=== PATIENT | female | born 1955 | race Caucasian/White ===

== ENCOUNTER 2016-09-12 17:38 | Emergency (ER) | payer BC ==
[~2016-09-12] VITALS: Ht 165.1 cm; Wt 90.0 kg
[2016-09-12 17:48] VITALS: TEMP 36.7; Ht 165.1 cm; Wt 90.0 kg
[2016-09-12] MEDS ORDERED: CHOL1000 PO (19:37)
[2016-09-12] MEDS ORDERED: MAGN1CAP4 PO (19:37)
[2016-09-12] MEDS ORDERED: TIMO10TA2 PO (19:37)
[2016-09-12] MEDS ORDERED: FLUO10CA48 PO (19:37)
[2016-09-12] MEDS ORDERED: DXM/4 PO (19:37)
[2016-09-12] MEDS ORDERED: PROC1TAB5 PO (19:37)
[2016-09-12] MEDS ORDERED: NAPR-1168 PO (19:37)
[2016-09-12] MEDS ORDERED: SUMA100T16 PO (19:37)
[2016-09-12 20:27] LABS: BASO % 0.1 %; BASO ABS # 0.01 K/uL (0-0.2); COMPLETE YES; EOS % 0.2 %; HEMATOCRIT 40.7 % (37-47); IG% 0.9 %; LYMPH ABS # 2.66 K/uL (1.2-3.4); MEAN CELL VOLUME 89.1 fL (80-100); MEAN CORPUSCULAR HEMOGLOBIN 31.1 pg (25-34); MEAN CORPUSCULAR HGB CONC 34.9 g/dl (32-36); MEAN PLATELET VOLUME 9.8 fL (7.4-10.4); MONO % 14.3 %; NEUT % 62.5 %; PLATELET COUNT 246 K/uL (130-400); RED BLOOD COUNT 4.57 M/uL (4.2-5.4); WHITE BLOOD COUNT 12.09 K/uL (4.8-10.8)
[2016-09-12 20:38] LABS: INR 1.1 (0.9-1.1); PROTHROMBIN TIME (PATIENT) 11.3 SECONDS (9.0-12.0)
[2016-09-12 20:59] LABS: ALKALINE PHOSPHATASE 46 U/L (45-117); ALT/SGPT 20 U/L (12-78); AST/SGOT 9 U/L (15-37); BLOOD UREA NITROGEN 22 mg/dl (7-18); C-REACTIVE PROTEIN < 0.29 mg/dl (0-0.29); CALCIUM 8.2 mg/dl (8.5-10.1); CARBON DIOXIDE 23 mmol/L (21-32); CHLORIDE 104 mmol/L (98-107); GLUCOSE 95 mg/dl (70-99); MAGNESIUM 2.1 mg/dl (1.8-2.4); POTASSIUM 4.2 mmol/L (3.5-5.1); SODIUM 136 mmol/L (136-145)
[2016-09-12] MEDS ORDERED: HYDROmorphone INJ 1 MG/ML SYR IV PRN (21:00)
[2016-09-12] MEDS ORDERED: ONDANSETRON 8 MG/54 ML D5W IV ONE (21:00)
[2016-09-12 21:01] LABS: MANUAL MICROSCOPIC REQUIRED? NO; REVIEW REQ? NO; URINE APPEARANCE CLOUDY (CLEAR); URINE BILIRUBIN NEG (NEG); URINE COLOR YELLOW; URINE EPITHELIAL CELL AUTO 20-30 /lpf (0-5); URINE NITRITE NEG (NEG); URINE PH 5.5 (4.5-7.5); UROBILINOGEN NEG (NEG)
[2016-09-12 21:20] LABS: LYME DISEASE AB IGG NEG (NEG); LYME DISEASE AB IGM NEG (NEG)
--- NOTE | 2016-09-12 21:28 | DIAGNOSTIC IMAGING REPORT ---
MR ANGIOGRAPHY OF THE [place] NO CONTRAST CLINICAL HISTORY: Severe headache, confusion. Hypertension. COMPARISON STUDY: None. A 3-D [id number] MR angiographic sequence of the [place] was performed. Both the source and projection images were reviewed. There is no evidence of major intracranial branch occlusion. There is no evidence of intracranial stenosis. There are no lesions suspicious for aneurysm. IMPRESSION: Unremarkable MR angiography of the [place]. Electronically signed by: Dawson Reddy M.D. 09/12/2016 9:26 PM Dictated Date/Time: 09/12/2016 9:25 PM
--- NOTE | 2016-09-12 21:51 | DIAGNOSTIC IMAGING REPORT ---
MRI OF THE BRAIN WITHOUT CONTRAST CLINICAL HISTORY: Date, confusion, neck pain, hypertension. COMPARISON STUDY: None. FINDINGS: Sagittal T1, axial diffusion, proton density and T2 weighted axial, coronal FLAIR, and axial T1-weighted images were acquired. No intra or extra-axial mass lesions are visualized Axial diffusion-weighted images reveal no evidence of acute or subacute infarction. There is no evidence of ventricular dilatation. Proton density T2-weighted and FLAIR images reveal a 2 mm focus of increased T2 and FLAIR signal within the left occipital periventricular white matter. In addition there are a few punctate foci of increased FLAIR signal within the frontal white matter. These foci although nonspecific likely are on a small vessel basis. There are no abnormal flow voids. IMPRESSION: No acute findings. No evidence of intracranial mass. No evidence of acute or subacute infarction. Electronically signed by: Dawson Reddy M.D. 09/12/2016 9:50 PM Dictated Date/Time: 09/12/2016 9:47 PM
--- NOTE | 2016-09-12 22:09 | DIAGNOSTIC IMAGING REPORT ---
MRI CERVICAL WITHOUT CONTRAST CLINICAL HISTORY: severe neck pain, confusion, migraine TECHNIQUE: Sagittal and axial T1, T2 and STIR images were obtained. COMPARISON STUDY: No previous studies for comparison. There are no suspicious areas of marrow replacement. No intrinsic cervical cord lesions are visualized. 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 C2-3: There is no evidence of disc bulge or focal herniation. There is no spinal or foraminal stenosis. C3-4: There is a mild circumferential disc bulge. There is slight effacement of the anterior subarachnoid space. There is no foraminal stenosis C4-5: There is a mild circumferential disc bulge present. There is minor bilateral foraminal narrowing C5-6 :There is a mild circumference disc bulge present.. There is mild left-sided foraminal narrowing C6-7: There is a mild circumferential disc bulge.. There is no evidence of spinal or foraminal stenosis. C7-T1: There is no evidence of disc bulge or focal herniation. There is no evidence of spinal or foraminal stenosis. IMPRESSION: 1. Mild multilevel spondylitic changes with multilevel disc bulges. No evidence of moderate or severe spinal stenosis. Mild bilateral foraminal narrowing at the C4-5 level. Mild left-sided foraminal narrowing at the C5-6 level. No intrinsic cord lesions identified Electronically signed by: Dawson Reddy M.D. 09/12/2016 10:08 PM Dictated Date/Time: 09/12/2016 10:03 PM
[2016-09-12] MEDS ORDERED: GADAVIST IV PRN (22:15)
--- NOTE | 2016-09-12 22:38 | DIAGNOSTIC IMAGING REPORT ---
MRA NECK WITHOUT CONTRAST CLINICAL HISTORY: neck pain, confusion, headache, hypertension COMPARISON STUDY: No previous studies for comparison. FINDINGS: Due to injector malfunction, the examination was performed without intravenous contrast. System Operation Superintendent films reveal a prominent thoracic scoliosis. There is no evidence of carotid or vertebral artery stenosis. IMPRESSION: 1. Technically limited study secondary to an injector malfunction 2. No evidence of carotid or vertebral artery stenosis Electronically signed by: Dawson Reddy M.D. 09/12/2016 10:36 PM Dictated Date/Time: 09/12/2016 10:35 PM
[2016-09-12] MEDS ORDERED: HYDROmorphone INJ 0.5 MG/0.5 ML SYR IV STA (23:16)
[2016-09-12] MEDS ORDERED: KETOROLAC TROMETHAMINE 30 MG/ML VIAL IV STA (23:16)
[2016-09-12] MEDS ORDERED: NORCO 5/325MG HOME PACK PO ONE (23:30)
[2016-09-13 00:07] VITALS: BP 105/71; O2SAT 98
[2016-09-13 00:11] VITALS: PULSE 48
--- NOTE | 2016-09-13 02:05 | EMERGENCY ROOM VISIT NOTE ---
History Report prepared by Tata: Alvarado Carrasco Under the Supervision of: Dr. Wil Yates M.D. First contact with patient: 19:45 Chief Complaint: NEURO SYMPTOMS Stated Complaint: DIZZINESS, SHAKE, NECK PAIN, VISION Nursing Triage Summary: Patient ambulatory to triage, states "I have a history of migraines. They have been getting more frequent. I am getting them every day. I recently started a decadron taper to control the cycle. I am taking timolol and prozac. I feel disconnected and confused. My eyesight is not as sharp. I feel shaky. Today, I have had some neck pain. I feel really stressed but tired. I went to the store today and couldn't make decisions about purchases. I feel really foggy. I have been suffering for several weeks with feelings of depression and not wanting to do anything for about a month. I have never had depression before." Patient started the Decadron on ; symptoms then started on Monday. Patient is seeing a specialist for headaches in [place]. Patient spoke with her on the phone and she told the patient to come here. Patient took Naproxyn, Imitrax and Compazine for the pain today with no relief. History of Present Illness The patient is a 61 year old female who presents to the Emergency Room with complaints of neurologic symptoms starting earlier today. She currently rates her discomfort as a 7/10 in severity. The patient states that she has a migraine , severe neck pain, nausea, confusion, blurry vision, shakiness, and dizziness. She states that she has a history of migraines, and they are becoming more frequent. She was recently put on a steroid taper for her migraines. The patient additionally states that she has felt stressed out due to being here, and she has felt depressed for the past month as well as having migraines every day for the past month. She additionally states that she has been having trouble making decisions. The patient states that she has taken Naprosyn around 1600, and compazine this morning for her headache. She denies any recent travels. Pt denies LOC, fevers, chills, diaphoresis, chest pain, breathing difficulties, vomiting, abdominal pain, back pain, melena, hematochezia, urinary symptoms, numbness, weakness, lymphadenopathy, rash, or other complaints. Source of History: patient Onset: earlier today Position: other (global) Symptom Intensity: 01/02 Quality: other (neurlogic symptoms) Associated Symptoms: + headache, + nausea, + neck pain Note: Associated symptoms: confusion, blurry vision, shakiness, dizziness Review of Systems See HPI for pertinent positives and negatives. A total of ten systems were reviewed and were otherwise negative. Past Medical & Surgical Medical Problems: (1) Hypertension (2) Migraine (3) Scoliosis Family History Cancer Heart disease Hypertension Social History Smoking Status: Never Smoker Marital Status: Housing Status: lives with family Occupation Status: employed Current/Historical Medications Scheduled Cholecalciferol (Vitamin D3), 1,000 INTER.UNIT PO DAILY Dexamethasone (Decadron), 4 MG PO TAPER Fluoxetine (Prozac), 30 MG PO QPM Magnesium Oxide (Magnesium), 500 MG PO Q2D Sumatriptan Succinate (Imitrex), 100 MG PO PRN Timolol (Blocadren), 5 MG PO QPM Scheduled PRN Naproxen Ds (Naprosyn Ds), 550 MG PO DAILY PRN for Headache Prochlorperazine Maleate (Compazine), 10 MG PO Q6H PRN for Nausea Allergies Coded Allergies: Midazolam (Unverified Allergy, Mild, HIVES, 09/12/16) Fluconazole (Unverified Adverse Reaction, Mild, SORES AT THE CORNES OF THE MOUTH AND EARS, 09/12/16) Physical Exam Vital Signs Date Time Temp Pulse Resp B/P Pulse Ox O2 Delivery O2 Flow Rate FiO2 09/13/16 00:11 48 09/13/16 00:07 50 16 105/71 98 09/12/16 22:41 46 12 110/80 95 09/12/16 20:20 49 09/12/16 20:03 Room Air 09/12/16 17:48 36.7 51 16 165/99 97 Room Air Physical Exam GENERAL: Awake, alert, well appearing, no distress HENT: Normocephalic, atraumatic. TM's normal. Oropharynx unremarkable. EYES: PERRL. EOMI. Normal conjunctiva. Sclera non-icteric. NECK: Supple. No nuchal rigidity. FROM. No JVD or bruit. RESPIRATORY: CTA CARDIAC: RRR. No murmur. ABDOMEN: Soft, non distended. No tenderness to palpation. No rebound or guarding. No masses. RECTAL: Deferred. MUSCULOSKELETAL: Unremarkable. No edema. No discoloration. Gross motor strength symmetric. NEURO: Cranial nerves 2-12 grossly intact. Normal sensorium. No sensory or motor deficits noted. Speech normal. No pronator drift. Normal heel to rangel. Normal rapid alternating movements. SKIN: No rash or jaundice noted. LYMPH: No adenopathy. Medical Decision & Procedures ER Provider Diagnostic Interpretation: Radiology results as stated below per my review and radiologist interpretation MRA NECK WITHOUT CONTRAST CLINICAL HISTORY: neck pain, confusion, headache, hypertension COMPARISON STUDY: No previous studies for comparison. FINDINGS: Due to injector malfunction, the examination was performed without intravenous contrast. Director Digital Marketing films reveal a prominent thoracic scoliosis. There is no evidence of carotid or vertebral artery stenosis. IMPRESSION: 1. Technically limited study secondary to an injector malfunction 2. No evidence of carotid or vertebral artery stenosis Electronically signed by: Dawson Reddy M.D. 09/12/2016 10:36 PM Dictated Date/Time: 09/12/2016 10:35 PM MR ANGIOGRAPHY OF THE [place] NO CONTRAST CLINICAL HISTORY: Severe headache, confusion. Hypertension. COMPARISON STUDY: None. A 3-D [id number] MR angiographic sequence of the [place] was performed. Both the source and projection images were reviewed. There is no evidence of major intracranial branch occlusion. There is no evidence of intracranial stenosis. There are no lesions suspicious for aneurysm. IMPRESSION: Unremarkable MR angiography of the [place]. Electronically signed by: Dawson Reddy M.D. 09/12/2016 9:26 PM Dictated Date/Time: 09/12/2016 9:25 PM MRI CERVICAL WITHOUT CONTRAST CLINICAL HISTORY: severe neck pain, confusion, migraine TECHNIQUE: Sagittal and axial T1, T2 and STIR images were obtained. COMPARISON STUDY: No previous studies for comparison. There are no suspicious areas of marrow replacement. No intrinsic cervical cord lesions are visualized. 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 C2-3: There is no evidence of disc bulge or focal herniation. There is no spinal or foraminal stenosis. C3-4: There is a mild circumferential disc bulge. There is slight effacement of the anterior subarachnoid space. There is no foraminal stenosis C4-5: There is a mild circumferential disc bulge present. There is minor bilateral foraminal narrowing C5-6 :There is a mild circumference disc bulge present.. There is mild left-sided foraminal narrowing C6-7: There is a mild circumferential disc bulge.. There is no evidence of spinal or foraminal stenosis. C7-T1: There is no evidence of disc bulge or focal herniation. There is no evidence of spinal or foraminal stenosis. IMPRESSION: 1. Mild multilevel spondylitic changes with multilevel disc bulges. No evidence of moderate or severe spinal stenosis. Mild bilateral foraminal narrowing at the C4-5 level. Mild left-sided foraminal narrowing at the C5-6 level. No intrinsic cord lesions identified Electronically signed by: Dawson Reddy M.D. 09/12/2016 10:08 PM Dictated Date/Time: 09/12/2016 10:03 PM MRI OF THE BRAIN WITHOUT CONTRAST CLINICAL HISTORY: Date, confusion, neck pain, hypertension. COMPARISON STUDY: None. FINDINGS: Sagittal T1, axial diffusion, proton density and T2 weighted axial, coronal FLAIR, and axial T1-weighted images were acquired. No intra or extra-axial mass lesions are visualized Axial diffusion-weighted images reveal no evidence of acute or subacute infarction. There is no evidence of ventricular dilatation. Proton density T2-weighted and FLAIR images reveal a 2 mm focus of increased T2 and FLAIR signal within the left occipital periventricular white matter. In addition there are a few punctate foci of increased FLAIR signal within the frontal white matter. These foci although nonspecific likely are on a small vessel basis. There are no abnormal flow voids. IMPRESSION: No acute findings. No evidence of intracranial mass. No evidence of acute or subacute infarction. Electronically signed by: Dawson Reddy M.D. 09/12/2016 9:50 PM Dictated Date/Time: 09/12/2016 9:47 PM Laboratory Results 09/12/16 20:10 Red Blood Count 4.57, Mean Corpuscular Volume 89.1, Mean Corpuscular Hemoglobin 31.1, Mean Corpuscular Hemoglobin Concent 34.9, Mean Platelet Volume 9.8, Neutrophils (%) (Auto) 62.5, Lymphocytes (%) (Auto) 22.0, Monocytes (%) (Auto) 14.3, Eosinophils (%) (Auto) 0.2, Basophils (%) (Auto) 0.1, Neutrophils # (Auto ) 7.55, Lymphocytes # (Auto) 2.66, Monocytes # (Auto) 1.73, Eosinophils # (Auto ) 0.03, Basophils # (Auto) 0.01 09/12/16 20:10 Test 09/12/16 00:00 09/12/16 20:10 Urine Color YELLOW Urine Appearance CLOUDY (CLEAR) Urine pH 5.5 (4.5-7.5) Urine Specific [place] 1.030 (1.000-1.030) Urine Protein NEG (NEG) Urine Glucose (UA) NEG (NEG) Urine Ketones NEG (NEG) Urine Occult Blood NEG (NEG) Urine Nitrite NEG (NEG) Urine Bilirubin NEG (NEG) Urine Urobilinogen NEG (NEG) Urine Leukocyte Esterase TRACE (NEG) Urine WBC (Auto) 1-5 /hpf (0-5) Urine RBC (Auto) 0-4 /hpf (0-4) Urine Hyaline Casts (Auto) 5-10 /lpf (0-5) Urine Epithelial Cells (Auto) 20-30 /lpf (0-5) Urine Bacteria (Auto) NEG (NEG) White Blood Count 12.09 K/uL (4.8-10.8) Red Blood Count 4.57 M/uL (4.2-5.4) Hemoglobin 14.2 g/dL (12.0-16.0) Hematocrit 40.7 % (37-47) Mean Corpuscular Volume 89.1 fL (80-100) Mean Corpuscular Hemoglobin 31.1 pg (25-34) Mean Corpuscular Hemoglobin Concent 34.9 g/dl (32-36) Platelet Count 246 K/uL (130-400) Mean Platelet Volume 9.8 fL (7.4-10.4) Neutrophils (%) (Auto) 62.5 % Lymphocytes (%) (Auto) 22.0 % Monocytes (%) (Auto) 14.3 % Eosinophils (%) (Auto) 0.2 % Basophils (%) (Auto) 0.1 % Neutrophils # (Auto) 7.55 K/uL (1.4-6.5) Lymphocytes # (Auto) 2.66 K/uL (1.2-3.4) Monocytes # (Auto) 1.73 K/uL (0.11-0.59) Eosinophils # (Auto) 0.03 K/uL (0-0.5) Basophils # (Auto) 0.01 K/uL (0-0.2) RDW Standard Deviation 45.8 fL (36.4-46.3) RDW Coefficient of Variation 14.0 % (11.5-14.5) Immature Granulocyte % (Auto) 0.9 % Immature Granulocyte # (Auto) 0.11 K/uL (0.00-0.02) Erythrocyte Sedimentation Rate 2 mm/hr (0-21) Prothrombin Time 11.3 SECONDS (9.0-12.0) Prothromb Time International Ratio 1.1 (0.9-1.1) Activated Partial Thromboplast Time 25.2 SECONDS (21.0-31.0) Partial Thromboplastin Ratio 1.0 Anion Gap 9.0 mmol/L (3-11) Est Creatinine Clear Calc Drug Dose 61.0 ml/min Estimated GFR () 63.6 Estimated GFR (Non- 54.9 BUN/Creatinine Ratio 20.0 (10-20) Calcium Level 8.2 mg/dl (8.5-10.1) Magnesium Level 2.1 mg/dl (1.8-2.4) Total Bilirubin 0.5 mg/dl (0.2-1) Direct Bilirubin 0.1 mg/dl (0-0.2) Aspartate Amino Transf (AST/SGOT) 9 U/L (15-37) Alanine Aminotransferase (ALT/SGPT) 20 U/L (12-78) Alkaline Phosphatase 46 U/L (45-117) Troponin I < 0.015 ng/ml (0-0.045) C-Reactive Protein < 0.29 mg/dl (0-0.29) Total Protein 6.5 gm/dl (6.4-8.2) Albumin 3.8 gm/dl (3.4-5.0) Lipase 326 U/L (73-393) Thyroid Stimulating Hormone (TSH) 10.300 uIu/ml (0.300-4.500) Lyme Disease IgG Antibody NEG (NEG) Lyme Disease IgM Antibody NEG (NEG) Laboratory results reviewed by me Medications Administered Medications (Trade) Dose Ordered Sig/Tona Route Start Time Stop Time Status Last Admin Dose Admin Hydromorphone HCl (Dilaudid Inj) 1 mg Q20M PRN IV 09/12/16 21:00 09/12/16 23:19 DC 3/20/17 20:59 1 MG Ondansetron HCl (Zofran 8mg Iv) 8 mg NOW ONCE IV 09/12/16 21:00 09/12/16 21:01 DC 09/12/16 20:58 8 MG Hydromorphone HCl (Dilaudid Inj) 0.5 mg NOW STAT IV 09/12/16 23:16 09/12/16 23:19 DC 09/12/16 23:30 0.5 MG Ketorolac Tromethamine (Toradol Inj) 10 mg NOW STAT IV 09/12/16 23:16 09/12/16 23:19 DC 09/12/16 23:30 10 MG Acetaminophen/ Hydrocodone Bitart ([place] 5/325mg Home Pack) 1 homepack UD ONCE PO 09/12/16 23:30 09/12/16 23:31 DC 09/13/16 00:04 1 HOMEPACK Laboratory results reviewed by me ECG Indication: other (Neurological symptoms) Rate (beats per minute): 44 Rhythm: sinus bradycardia Findings: no acute ischemic change, no ectopy ED Course 2001: The patient was evaluated in room B4. A complete history and physical exam was performed. 2053: I reevaluated the patient, and she stated that she is allergic to Versed, so I gave her pain medications, and she states her neck feels better. 2100: Zofran 8mg IV, Dilaudid Inj 1mg IV 2316: Toradol Inj 10mg IV, Dilaudid Inj 0.5mg IV 2318: I reassessed the patient, and she was doing better, however while I was in the room she became stressed, and the neck pain came back. 2330: [place] 5/325mg 1 Home Pack Medical Decision Triage Nursing notes reviewed. The patient's presentation and history were concerning for headache and migraine history as well as neck pain and confusion. Etiologies such as migraine, tumor, headache, sinus thrombosis, temporal arteritis, sinusitis, CVA, ICH, SAH, infection, vascular, as well as others were entertained. The patient was evaluated. She was nonfocal on her neurologic examination. Clinically she looks well. She has a history of neck pain but states that things have just worsened. She also notes a history of migraines. The patient states that her mood feels much worse and this confusion has started since starting her Decadron taper. The patient did not have any meningeal findings. She was afebrile. She has not had any flulike symptoms. Blood work was obtained. She had a mild leukocytosis on CBC which I believe is from her steroids. Chemistry panel was unremarkable. Lyme screen is negative. Cardiac markers negative. Patient initially declined analgesia but then wanted something to relax her for the MRI. The patient was given Dilaudid and Zofran. The patient underwent diagnostic imaging. On reassessment she was feeling much better. Imaging did not reveal any abnormality of the brain or blood vessels. The neck evaluation was somewhat limited as contrast could not be administered due to a mechanical breakdown of the contrast injector. The patient has not had any trauma or manipulation to consider dissection. She has had ongoing neck issues and they have worsened. This is not a brand-new problem for her. I suspicion for that is extremely low. After discussing her issues the patient noted some increased tension. She feels stresses a big component of her neck pain. She was given an additional dose of Dilaudid, 1/2 mg and a dose of Toradol. I discussed having some analgesia at home in case she has a breakthrough episode until she can have her follow-up appointment. She was given a [place] home pack. The patient has a follow-up appointment tomorrow the with her primary physician. If she worsens in any way she will come back to the emergency department. The patient had a mildly elevated TSH that may indicate some early hypothyroidism. She will discuss this with her primary physician. By the evaluation outlined above other emergent etiologies such as those listed in the differential, as well as others, were deemed relatively unlikely. The patient and her were informed about the findings as listed above. All questions were answered and they were pleased with the treatment. Return instructions were outlined and the patient was discharged in stable condition. The patient was referred to her PCP for follow-up tomorrow for a recheck of the current condition. The chart was completed utilizing [employer] Speech voice recognition software. Grammatical errors, random word insertions, pronoun errors, and incomplete sentences are an occasional consequence of this system due to software limitations, ambient noise, and hardware issues. Any formal questions or concerns about the content, text, or information contained within the body of this dictation should be directly addressed to the physician for clarification. Impression Primary Impression: Headache Additional Impressions: Confusion Mood disorder Hypothyroidism Scribe Attestation The scribe's documentation has been prepared under my direction and personally reviewed by me in its entirety. I confirm that the note above accurately reflects all work, treatment, procedures, and medical decision making performed by me. Departure Information Dispostion Home / Self-Care Referrals Ricarda Mathew M.D. (PCP) Forms HOME CARE DOCUMENTATION FORM, IMPORTANT VISIT INFORMATION, WORK / SCHOOL INSTRUCTIONS Patient Instructions [facility] Additional Instructions DO NOT drive, drink alcohol, operate machinery, or perform dangerous activities today. You were given medications in the ER that can affect your ability to safely function or operate a vehicle. Rest today in a quiet, peaceful, dark environment and get a full 8-10 hrs of sleep tonight. Avoid loud noises, smoke/smoking, alcohol, bright lights, stress, or physical exertion today to minimize the chance the headache may return. Continue current medications. Hydrocodone/acetaminophen 5/325mg: Take 1-2 pills every 6 hours as needed for pain. Avoid additional Acetaminophen/Tylenol, alcohol, operating machinery or dangerous equipment, working on ladders or roofs, DRIVING, or situations where being under the influence may be dangerous. Ibuprofen(Motrin, Advil) may be used for fever or pain. Use 600mg every six hours as needed. Take with food. Avoid using more than 2400mg in a 24 hour period. Do not use 2400mg per day for more than three consecutive days without physician direction. Prolonged inappropriate use can lead to stomach upset or ulcers. (AND/OR) Acetaminophen(Tylenol) may be used for fever or pain. Use 1000mg every six hours as needed. Avoid using more than 4000mg in a 24 hour period. Warm compresses for 20 minutes at a time four times daily for 2-3 days for your neck. Return to the ER for passing out, worsening headache, vision problems, worsening or different neck stiffness/pain, fevers, vomiting, worsening of your condition, or as needed. Follow up with your primary physician tomorrow as scheduled for a recheck of your current condition. Problem Qualifiers
== END 2016-09-13 00:09 | disposition home or self-care (01) ==
LOC: C.EDB 17:40
DX: R51 Headache (principal); R41.0 Disorientation, unspecified; F39 Unspecified mood [affective] disorder; E03.9 Hypothyroidism, unspecified; R42 Dizziness and giddiness; I10 Essential (primary) hypertension; Z82.49 Family history of ischemic heart disease and other diseases of the circulatory system; Z79.899 Other long term (current) drug therapy